=== PATIENT | female | born 1985 | race Caucasian/White ===

== ENCOUNTER 2023-09-27 09:10 | Outpatient (CLI) | payer OTHER, SELFPAY ==
--- NOTE | 2023-09-27 09:15 | CRLHL7_ITS ---
For Patients: As a result of the Cures Act, medical imaging exams and procedure reports are released immediately into your electronic medical record. You may view this report before your referring provider. If you have questions, please contact your health care provider. INDICATION: First trimester scan, establish dates. COMPARISON: None. TECHNIQUE: Real-time llaens-scale imaging of the pelvis was performed. FINDINGS: Sonographic imaging demonstrates a single living intrauterine gestation. The embryo demonstrates a regular cardiac rate measuring 173 beats per minute. The embryo`s crown-rump length measurement of 3.2 cm corresponds to a gestational age of 10 weeks 1 day with a sonographic due date of 04/23/2024. There is a normal-appearing yolk sac. There are no gross abnormalities noted within the embryo at this early state of development. The gestational sac has a normal appearance. There is no evidence of a perigestational hemorrhage. The amount of fluid within the sac appears appropriate for gestational age. The cervix is closed. The myometrium appears normal. Corpus luteal cyst left ovary measuring 3.2 x 2.9 x 2.2 cm. Normal right ovary. There are no suspicious fluid collections noted in the cul-de-sac. IMPRESSION: Single living intrauterine with sonographic gestational age 10 weeks 1 day and sonographic due date 04/23/2024. Dictated by Timur Lira MD @ 09/27/2023 10:13:06 AM (Electronically Signed)
== END 2023-09-27 09:11 | disposition home or self-care (01) ==
LOC: US 09:10
PROVIDERS: PCP Family Medicine; Visit Provider Advanced Practice Midwife
DX: Z34.91 Encounter for supervision of normal pregnancy, unspecified, first trimester (principal); Z3A.10 10 weeks gestation of pregnancy
CPT/HCPCS: 76817; 86703; 86706; 86803; 86850; 86900; 86901; 87086; 87340

== ENCOUNTER 2023-09-27 10:35 | Outpatient (CLI) | payer OTHER, SELFPAY | END 2023-09-27 10:36 | disposition home or self-care (01) | PROVIDERS: PCP Family Medicine; Visit Provider Advanced Practice Midwife | DX: Z34.91 Encounter for supervision of normal pregnancy, unspecified, first trimester (principal) | CPT/HCPCS: 86592; 86703; 86704; 86706; 86762; 86787; 86803; 86850; 86900; 86901; 87086; 87340 ==

== ENCOUNTER 2023-12-16 09:37 | Outpatient (CLI) | payer OTHER, SELFPAY ==
--- NOTE | 2023-12-16 09:45 | US_ITS ---
Patient: JOSIAS KAUFFMAN Facility:?[facility] Patient ID:?[id number] Site Patient ID:?[id number]. Site :?[id number] Study:?US-OB Pelvis -12/16/2023 11:26:16 AM Ordering Physician:Abhilash Edwards Final Report: INDICATION: Evaluate anatomy. COMPARISON: 09/27/2023 TECHNIQUE: Real time llanes scale imaging of the fetus was performed as well as color Doppler analysis of the umbilical vessels. FINDINGS: Sonographic imaging demonstrates a single living intrauterine gestation. Fetus demonstrates a regular cardiac rate of 155 beats per minute. Fetus has a vertex position. The placenta lies posteriorly without evidence of placenta previa. Placental edge 4.3 cm from the internal cervical os. Amniotic fluid volume appears normal. Single deepest vertical pocket: 5.3 cm. The cervix is closed and measures 5.0 cm in length. The composite ultrasound gestational age is calculated at 21 weeks 0 days with an estimated sonographic due date of 04/27/2024. The estimated weight is 449 grams which lies at the 89th %. The following biometric measurements were obtained: Biparietal diameter: 4.8 cm/20 weeks 4 day 40th% Head circumference: 19.3 cm/21 weeks 4 days 72nd% Abdominal circumference: 17.8 cm/22 weeks 5 day 92nd% Femur length: 3.4 cm/20 weeks 6 days 40th% The HC/AC ratio measures: 1.09 range (1.06-1.25) On anatomic survey, there is a normal appearance of the cerebral ventricles, cavum septi pellucidi, cisterna magna and cerebellum. The nose, lips, and facial profile appear normal. The cervical, thoracic and lumbar spine are well visualized and appear normal. There is a normal four-chamber heart view and the left and right ventricular outflow tracts appear normal. The diaphragm and stomach appear normal. The kidneys and bladder also appear normal. There is a normal three-vessel cord and there is a marginal cord insertion site located 1.2 cm from the placental edge. The four extremities appear normal. IMPRESSION: Concordance of clinical and sonographic dating. No intrinsic abnormalities noted on anatomic survey. Marginal placental cord insertion. Dictated by Timur Lira MD @ 12/16/2023 11:33:43 AM Signed by:?Timur Lira MD @12/16/2023 11:33:43 AM (Electronic Signature)
== END 2023-12-16 09:38 | disposition home or self-care (01) ==
LOC: US 09:37
PROVIDERS: PCP Family Medicine; Visit Provider Advanced Practice Midwife
DX: Z34.92 Encounter for supervision of normal pregnancy, unspecified, second trimester (principal); Z3A.20 20 weeks gestation of pregnancy
CPT/HCPCS: 76805

== ENCOUNTER 2024-02-08 11:33 | Outpatient (CLI) | payer OTHER, SELFPAY | END 2024-02-08 11:34 | disposition home or self-care (01) | LOC: NFLDREF 02-11 07:31 | PROVIDERS: PCP Family Medicine; Referring Provider Family Medicine; Visit Provider Advanced Practice Midwife | DX: Z34.93 Encounter for supervision of normal pregnancy, unspecified, third trimester (principal) | CPT/HCPCS: 86592 ==

== ENCOUNTER 2024-03-23 12:19 | Outpatient (CLI) | payer OTHER, SELFPAY ==
--- NOTE | 2024-03-23 12:15 | CRLHL7_ITS ---
For Patients: As a result of the Century Cures Act, medical imaging exams and procedure reports are released immediately into your electronic medical record. You may view this report before your referring provider. If you have questions, please contact your health care provider. INDICATION: Marginal cord insertion TECHNIQUE: Limited transabdominal two-dimensional llanes-scale ultrasound examination. COMPARISON: 12/16/2023 FINDINGS: There is a living fetus in cephalic lie with gestational age of 34 weeks 6 days by LMP and 37 weeks 2 days by today`s measurements. EDC based on LMP is 04/28/2024. BPD: 9.1 cm, 36 weeks 5 days Head circumference: 33.1 cm, 37 weeks 5 days Abdominal circumference: 35.9 cm, 39 weeks 5 days Femur length: 6.8 cm, 35 weeks 1 day The weight is estimated at 3415 grams, greater than the 97th percentile. The heart rate is measured at 131 beats per minute and the rhythm appears regular. The amniotic fluid volume is within normal limits with single deepest pocket of 5.1 cm. The placenta is posterior and superior to the cervical os. There is no evidence of previa. IMPRESSION: 1. Living fetus in cephalic lie with gestational age of 34 weeks 6 days by LMP and 37 weeks 2 days by today`s measurements. EDC based on LMP is 04/28/2024. 2. weight estimated at 3415 grams, greater than the 97th percentile. Dictated by Mitesh Catherine MD @ 03/25/2024 7:07:25 AM (Electronically Signed)
== END 2024-03-23 12:20 | disposition home or self-care (01) ==
LOC: US 12:20
PROVIDERS: PCP Family Medicine; Visit Provider Advanced Practice Midwife
DX: O43.193 Other malformation of placenta, third trimester (principal); O09.523 Supervision of elderly multigravida, third trimester; Z3A.34 34 weeks gestation of pregnancy
CPT/HCPCS: 76816

== ENCOUNTER 2024-03-29 11:31 | Outpatient (CLI) | payer OTHER, SELFPAY | END 2024-03-29 11:32 | disposition home or self-care (01) | LOC: NFLDREF 04-14 16:21 | PROVIDERS: PCP Family Medicine; Referring Provider Family Medicine; Visit Provider Advanced Practice Midwife | DX: Z34.83 Encounter for supervision of other normal pregnancy, third trimester (principal) | CPT/HCPCS: 87081; 87653 ==

== ENCOUNTER 2024-03-30 10:00 | Outpatient (RCR) | payer OTHER, SELFPAY | END 2024-07-28 23:59 | disposition home or self-care (01) | PROVIDERS: PCP Family Medicine; Visit Provider Advanced Practice Midwife | DX: M62.89 Other specified disorders of muscle (principal); Z51.89 Encounter for other specified aftercare | CPT/HCPCS: 97110; 97112; 97140; 97161; 97535 ==

== ENCOUNTER 2024-04-23 09:26 | Inpatient (IN) | payer OTHER, SELFPAY ==
[2024-04-23] VITALS (13 sets, daily range): BP systolic 101–130; BP diastolic 62–81; PULSE 63–103; RESP 16; TEMP 36.4–36.8; O2SAT 95–96
--- NOTE | 2024-04-23 09:49 | P.LDBA_ITS ---
Subjective History of Present Illness Date Seen: 04/23/24 Narrative: Patient is being admitted to Labor and Delivery for active labor after SROM at home this morning at 0700. Her contractions have increased in frequency and intensity since that time. She is a 38 year old at 39.2 weeks gestation. Her full history and physical was dictated by Maryanne Cárdenas CNM on 04/13/24. Please see this for details. Her is complicated by marginal cord insertion, suspect macrosomia with EFW >97% and AC >97% at 34.6 weeks, AMA, anxiety, depression and rheumatoid arthritis. she is declining a SVE but is moaning and actively working through every contraction. She desires a waterbirth and is waiting for the tub to be filled. Specific Issues/Plans Wally Daughter: Danya. Baby: Boy! H&P done by Maryanne Cárdenas CNM on 04/13/24 1. Rheumatoid arthritis dx as teen, worsens in referral for rheumatology at [facility] per pt request, has appt scheduled recommenced baby ASA 2. Anxiety and depression on Lexapro 10mg for approx last 10 years requested therapy referral at [facility], sent Patient wants to increase Lexapro dose prior to delivery in anticipation of the PP period, increased to 20mg Patient struggled with inability to sleep during PP period after first child was born. Consider Vistaril. 3. Eczema in at [facility] moderate case Dermatology referral fluocinolone 0.025% BID x 2 weeks 4. AMA age 37 recommend level II US- declined genetic screening declined 5. Marginal cord insertion Growth Q 4 weeks starting at 28-32 weeks, wants Level 2, order placed planning 29 wks Doing wkly NST starting at 36 wks Patient scheduled for level 2 US and growth w/ MFM. Wants to wait to see those results before deciding if she'll have future growth US at [place] vs. w/ MFM Level II 02/15/24: 29.4 weeks. vtx, posterior placenta, no previa. 3 vessel cord, marginal insertion. EFW 85%. No anomolies seen. Normal amniotic fluid. Recommend follow up u/s at 34 weeks. 03/23/2024 34w6d: Vtx, SDP 5.1cm, EFW 3415gm = 7#8oz > 97%. COVID: first initial series, maybe 1-2 boosters Flu: 11/24/2023 TDAP: 02/22/2024 32wk mental health: 03/07/2024 34wk hgb: 03/23/2024 OB - Problem Based A/P Additional Plan (1) Pain during labor: Status: Acute (2) AMA (advanced maternal age) multigravida 35+: Status: Acute (3) Marginal insertion of umbilical cord: Status: Acute Plan ASSESSMENT:? at 39.2 weeks gestation? GBS negative? ?complicated by: AMA, marginal cord insertion, suspected macrosomia, anxiety, depression, and rheumatoid arthritis SROM with active labor at term Blood type:?O+ ?? PLAN:? 1. Desires water . Consent signed. Hep C negative.? 2. Candidate for analgesia of choice. Planning unmedicated .? 3. Anticipate ? 4. Expectant management at this time.? 5. No IV placement needed at this time. Consider placement if conditions change. 6. Intermittent auscultation after reactive tracing is obtained. Delivery/Labor/Induction Plan Plan: expectant management OB Result Labs Blood Type: O (+) positive GBS Status: negative OB Exam Physical Exam Vital signs: Pulse BP 63 101/62 04/23/24 09:29 04/23/24 09:29 Narrative: Psychiatric:? Alert and oriented x3? HEENT:? Normocephalic, atraumatic? Neck:? Supple without adenopathy or thyromegaly? Lungs:? Clear to auscultation bilaterally? Heart:? Regular rate and rhythm, no murmur, rub or gallop? Abdomen:? Soft, nontender, and gravid? Extremities:? No edema or erythema? Detailed Labor and Delivery Exam Patient Gravid: Yes Contraction Frequency: 2-4 min Contraction intensity: Strong/Firm Fetus (Single) Amniotic Membrane Status: SROM Amniotic Membrane Fluid Description: Clear Heart Rate Baseline: 130 Monitor Accelerations: Present Monitor Decelerations: Early (and variable ) Perioperative Manager Variability: Moderate (6-25)
[2024-04-23] MEDS: LIDOCAINE 1 % PF 30 ML INJECTION (10:32)
[2024-04-23] MEDS: lidocaine HCL 2 % JELLY (TOP) STERILE 6 ML TOPICAL (10:34)
[2024-04-23] MEDS: OXYTOCIN 10 UNIT/ML INJ IM (11:11)
--- NOTE | 2024-04-23 11:30 | W.PM.OBVAGDE ---
OB Procedure Vag Delivery Mother Details Mother Details: The patient is a 38 year-old, 3, Para 1, admitted on 04/23/24 at 39.2 Days gestation. : 3 Para: 2 Weeks Gestation: 39.2 Admission Date: 04/23/24 Additional Details Amniotic Membrane Status: SROM Amniotic Membrane Rupture Date: 04/23/24 Amniotic Membrane Rupture Time: 07:00 Amniotic Membrane Fluid Description: Clear Analgesia/Anesthesia Type: None Waterbirth: Yes Pitcoin: Yes ([facility] only) Intrapartal Events: Precipitous Labor <3 Hrs Labor Onset: 07:00 Complete: 09:53 (presumed with pushing ) Pushin:53 Heart: heart tones during second stage were category 2 and difficult to obtain due to maternal position. Baseline 130 with + accels, early and variable decelerations and moderate variability. Very intermittent tracing with pushing and difficult to determine baseline. Delivery Details Delivery Date: 04/23/24 Delivery Time: 10:11 Route of delivery: Gender: Male Viability: Alive; Heart Rate Present Position at Delivery: OA Delivery Details: Patient was admitted for SROM and active labor and progressed normally. SROM noted at 0700 with clear fluid. Patient was presumed complete with pushing and began pushing at 0953. of a viable male at 1011 on her right side in the tub. Vertex delivered OA. No shoulder. Nuchal cord too tight to reduce so melita saulted and reduced after delivery. The head came very slowly after delivery up to the eyebrows, presumably this was due to lack of maternal effort at this point in delivery. Body delivered easily and without incident. passed to mothers abdomen. No cry and slow heart rate so cord was clamped after about 30 seconds and baby was brought to the warmer where he received PPV. APGARS were 1 at one minute and 7 at five minutes and 8 at 10 minutes respectively. Mouth was deep suctioned at the warmer. Intact placenta with a 3 vessel cord delivered spontaneously at 1016. The cord was inserted at the very margin of the placenta. Fundus firm. 2nd degree perineal and 1st degree right labial lacerations were identified and repaired in typical fashion. QBL 50 in the drape and 400mL in the tub for a total of 450mL. Mother and baby stable; mother plans to breastfeed. weight 9lb 0oz.? 1 Minute Interval Total Score: 1 5 Minute Interval Total Score: 7 10 Minute Interval Total Score: 8 Additional Details Shoulder Dystocia: No Placental Delivery Description: Spontaneous Delivery repair: Vicryl Procedure Done: Global Blood Loss: 450 Laceration: Perineal - 2nd Degree (1st degree right labial) Episiotomy Description: None Blood Loss Measurement Type: QBL (50mL in the drape, 400 EBL in the tub) Bakri Used: No Sponge/Need Count Correct: Yes Cord Vessel Description: 3 Vessels, Nuchal Cord and Tight Event Summary Status: Mother and were stable after delivery. Disposition: floor
[2024-04-23] MEDS: IBUPROFEN 600 MG TABLET PO ×2 (11:36→17:45)
[2024-04-24 00:14] VITALS: BP 129/87; PULSE 65; RESP 18; TEMP 36.9; O2SAT 95
[2024-04-24] MEDS: IBUPROFEN 600 MG TABLET PO ×2 (00:20→08:42)
[2024-04-24 05:05] VITALS: BP 98/61; PULSE 90; RESP 18; TEMP 36.8; O2SAT 95
[2024-04-24 07:12] LABS: Hemoglobin* 11.5 gm/dL (12.0-16.0)
[2024-04-24 08:08] VITALS: BP 115/78; PULSE 84; RESP 18; O2SAT 95
--- NOTE | 2024-04-24 08:14 | PM.OBDSVD1 ---
DS: Providers Provider Date Seen: 04/24/24 Date of admission: 04/23/24 09:26 Primary care physician: Samra Kingsley MD Admitting Clinician: Katie Cole CNM Attending Physician on discharge: Katie Cole CNM Date of Discharge: 04/24/24 DS: Diagnosis Discharge Diagnosis (1) Lactating mother: Status: Acute (2) care following vaginal delivery: Status: Acute (3) Depression: Status: Acute (4) Anxiety: Status: Acute Exam Narrative: Exam Narrative: GENERAL APPEARANCE:? normal affect, alert, no distress? MOOD:? appropriate? CHEST:? clear to auscultation and percussion? HEART:? regular rate and rhythm? ABDOMEN:? soft, non-tender the uterine fundus is U/2 and is appropriate for the stage of recovery.? PERINEUM:? mild edema of the perineum, there is a 2nd degree laceration that is healing well.? EXTREMITIES:? normal and no edema? Const: Vital Signs, click to edit/add: Vital Signs - 24 hr 04/23/24 09:29 04/23/24 09:41 04/23/24 10:19 Temperature 97.5 F L Pulse Rate 63 81 Pulse Rate [Pulse Oximeter] Respiratory Rate Blood Pressure 101/62 128/75 Blood Pressure [Ri ght Arm] Pulse Oximetry Oxygen Delivery Me thod 04/23/24 10:34 04/23/24 10:49 04/23/24 11:04 Temperature Pulse Rate 85 69 73 Pulse Rate [Pulse Oximeter] Respiratory Rate Blood Pressure 130/78 120/66 119/62 Blood Pressure [Ri ght Arm] Pulse Oximetry Oxygen Delivery Me thod 04/23/24 11:19 04/23/24 11:34 04/23/24 11:50 Temperature Pulse Rate 73 67 73 Pulse Rate [Pulse Oximeter] Respiratory Rate Blood Pressure 126/73 129/71 124/72 Blood Pressure [Ri ght Arm] Pulse Oximetry Oxygen Delivery Me thod 04/23/24 12:04 04/23/24 12:19 04/23/24 16:00 Temperature 98.3 F Pulse Rate 70 75 Pulse Rate [Pulse Oximeter] 103 H Respiratory Rate 16 Blood Pressure 121/71 125/76 Blood Pressure [Ri ght Arm] 122/81 Pulse Oximetry 96 Oxygen Delivery Me thod Room Air 04/23/24 20:32 04/24/24 00:14 04/24/24 05:05 Temperature 97.8 F 98.4 F 98.3 F Pulse Rate Pulse Rate [Pulse Oximeter] 93 65 90 Respiratory Rate 16 18 18 Blood Pressure Blood Pressure [Ri ght Arm] 122/81 129/87 98/61 Pulse Oximetry 95 95 95 Oxygen Delivery Me thod Room Air Room Air 04/24/24 08:08 Temperature 98.3 F Pulse Rate Pulse Rate [Pulse Oximeter] 90 Respiratory Rate 18 Blood Pressure Blood Pressure [Ri ght Arm] 98/61 Pulse Oximetry 95 Oxygen Delivery Me thod Room Air Documenting provider has reviewed patient's vital signs: yes OB - DS: Summary Hospital Course Hospital Course: Linh is a 38 year old G 3 P 2 at 39.2 weeks gestation that was admitted to the Center on 04/23/24 for active labor. She had an uncomplicated precipitous vaginal delivery. She delivered a viable male infant. She is breast feeding and denies concerns. the patient has done well. Her pain is well controlled with current medications.? She has no new complaints.? Urinary output is adequate and she is voiding without difficulty.? Has a good appetite, is tolerating a general diet, is passing flatus, and has not had a bowel movement.? Has scant amount of rubra lochia.? She is ambulating well. She is unsure what she is planning for contraception but considering a partner vasectomy. Peripartum Data delivery method: Vaginal Laceration description: Perineal - 2nd Degree Episiotomy description: None complications: none [place] Infant Gender: Male Discharge Plan: Home Status at Discharge Functional status at discharge: independent ambulation Overall status at discharge: patient is progressing back to baseline Time Spent with Patient Time attestation: Total time spent providing and/or coordinating discharge services: Discharge Plan Discharge Disposition: Home, Self-Care Date of Admission: 04/23/24 09:26 Primary Care Provider: Samra Kingsley I Condition: Stable Anticipated Discharge Date/Time: 04/24/24 12:00 Discharge Medications: New docusate sodium 100 mg Capsule 100 mg PO DAILY Qty: 90 0RF Rx Instructions: Take 1-2 tablets daily as needed for constipation. ibuprofen 600 mg Tablet 600 mg PO Q6H PRNQty: 30 0RF Continued omega-3 fatty acids Capsule 1,250 mg PO QDAY Classic 28 mg iron- 800 mcg tablet 1 tab PO DAILY escitalopram oxalate 10 mg tablet 20 mg PO QDAY Qty: 30 2RF hydroxyzine HCl 25 mg tablet 25 mg PO QHS PRN (Reason: sleep) Qty: 30 0RF Rx Instructions: one to two tablets orally every day at bedtime as needed Discharge Orders: Discharge Order (Routine); Ordered 04/24/24 Ordered By: Katie Cole Patient Education: OB Vaginal/Breast Feeding Additional Instructions: Discharge instructions were reviewed with the patient including signs and symptoms of infection and home going medications.? Off Work or School for 6 weeks.? ?? Symptoms to report to doctor:? -Bleeding that saturates more than one pad per hour? -Passing clots larger than the size of a golf ball? -Pain not relieved by prescribed medication? -Fever above 100.4 degrees Fahrenheit? -A foul vaginal odor? -Difficulty in emotions, mood and functions? -Thoughts of hurting yourself and/or ? -Painful, reddened area in your breast? -Any drainage, redness or tenderness in your IV/epidural site? -Severe headache that doesn't improve after taking medications? -Changes in vision, including temporary loss of vision, blurred vision, and/or light sensitivity? -Upper abdominal pain (usually under ribs on the right side)? -Decrease in urination or painful, frequent urinating? -Chest pain? -Shortness of breath? -Tenderness or pain with redness and/swelling in the calf(s) of your leg? ?? Follow Up in clinic in 2 and 6 weeks.? ?? consultation services are available to all mothers and babies for the first year after delivery.? To make an appointment, please call [phone].? Activity Level: Activity as Tolerated Discharge Diet: Regular Follow Up Appointments: [facility] [Provider Group] Forms: MyHealth Info Instructions
[2024-04-24] MEDS: DOCUSATE SODIUM 100 MG CAPSULE PO (08:42)
== END 2024-04-24 14:00 | disposition home or self-care (01) | DRG 807 ==
LOC: OB OUT 09:27 → OB 09:27
PROVIDERS: Admitting Provider Advanced Practice Midwife; PCP Family Medicine; Visit Provider Advanced Practice Midwife
DX: O69.89X0 Labor and delivery complicated by other cord complications, not applicable or unspecified (principal); Z37.0 Single live birth; O62.3 Precipitate labor; O70.1 Second degree perineal laceration during delivery; M08.00 Unspecified juvenile rheumatoid arthritis of unspecified site; O99.344 Other mental disorders complicating childbirth; F41.9 Anxiety disorder, unspecified; F32.A Depression, unspecified; L30.9 Dermatitis, unspecified; Z3A.36 36 weeks gestation of pregnancy
CPT/HCPCS: 36415; 85018; 86592; 88307; A9270; J2001; J2590

== ENCOUNTER 2024-07-06 09:26 | Outpatient (CLI) | payer OTHER, SELFPAY ==
--- NOTE | 2024-07-06 09:30 | CRLHL7_ITS ---
For Patients: As a result of the Cures Act, medical imaging exams and procedure reports are released immediately into your electronic medical record. You may view this report before your referring provider. If you have questions, please contact your health care provider. INDICATION Non-toxic thyroid. FINDINGS The right thyroid lobe measures 5.2 x 1.6 x 1.9 cm. The left thyroid lobe measures 5.4 x 1.6 x 2.1 cm. Heterogeneous echotexture of the thyroid gland. Subcentimeter left thyroid nodules are present. Hypoechoic nodule left superior thyroid lobe measuring 0.8 x 0.4 x 0.6 cm, TR 4. Solid cystic nodule left medial mid thyroid lobe measuring 0.8 x 0.4 x 0.7 cm, TR 3. Solid cystic nodule left mid medial thyroid lobe measuring 0.6 x 0.3 x 0.6 cm, TR 3. IMPRESSION Multinodular thyroid. Tete Alvarez M.D. Diagnostic/Breast Radiologist [email or web address] ACR [email or web address] TR1: Benign No FNA TR2: Not Suspicious No FNA TR3: Mildly Suspicious FNA if greater than or equal to 2.5 cm Follow if greater than or equal to 1.5 cm TR4: Moderately Suspicious FNA if greater than or equal to 1.5 cm Follow if greater than or equal to 1 cm TR5: Highly Suspicious FNA if greater than or equal to 1 cm Follow if greater than or equal to 0.5 cm lizette/Dictated by: Tete Alvarez MD @ 07/06/2024 3:12:00 PM (Electronically Signed)
== END 2024-07-06 09:27 | disposition home or self-care (01) ==
LOC: US 09:27
PROVIDERS: PCP Family Medicine; Visit Provider Midwife
DX: E04.1 Nontoxic single thyroid nodule (principal); N89.8 Other specified noninflammatory disorders of vagina
CPT/HCPCS: 76536

== ENCOUNTER 2025-01-25 08:45 | Outpatient (RCR) | payer OTHER, SELFPAY | END 2025-05-25 23:59 | disposition home or self-care (01) | PROVIDERS: PCP Family Medicine; Visit Provider Midwife | DX: R10.2 Pelvic and perineal pain (principal); R10.30 Lower abdominal pain, unspecified; M62.89 Other specified disorders of muscle; Z39.2 Encounter for routine postpartum follow-up; Z39.1 Encounter for care and examination of lactating mother; Z51.89 Encounter for other specified aftercare | CPT/HCPCS: 97110; 97112; 97140; 97161; 97535 ==

== ENCOUNTER 2025-02-20 14:00 | Outpatient (RCR) | payer OTHER, SELFPAY | END 2025-04-25 12:15 | disposition home or self-care (01) | PROVIDERS: PCP Family Medicine; Visit Provider Podiatrist | DX: M25.571 Pain in right ankle and joints of right foot (principal); M25.371 Other instability, right ankle; Z51.89 Encounter for other specified aftercare | CPT/HCPCS: 97110; 97140; 97161 ==